=== PATIENT | female | born 1960 | race Caucasian/White ===

== ENCOUNTER 2018-12-17 09:50 | Emergency (ER) | payer BC, OTHER ==
[2018-12-17 10:10] VITALS: BP 127/82
--- NOTE | 2018-12-17 10:19 | UC ---
General HPI - HPI Summary HPI Summary: PT TRIPPED AND FELL WHILE AT WORK THIS AM STRIKING HER R JAW ON AN INDUSTRIAL PLASTIC SINK. SHE IS C/O PAIN AND SWELLING TO THE R SIDE OF HER JAW. SHE STATES " I DON'T WANT TO OPEN MY MOUTH ALL THE WAY BECAUSE IT HURTS". SHE DENIES DENTAL INJURY AND MALOCCLUSION. SHE TOOK [employer]. SHE DENIES NECK PAIN AND ANY OTHER INJURY. SWELLING IMPROVING WITH ICE. - History of Current Complaint Chief Complaint: UCTrauma Stated Complaint: JAW INJURY (WC) Time Seen by Provider: 12/17/18 10:10 Hx Obtained From: Patient Onset/Duration: Sudden Onset Timing: Constant Pain Intensity: 5 Associated Signs & Symptoms: Negative: Headache PMH/Surg Hx/FS Hx/Imm Hx Previously Healthy: Yes - Surgical History Surgical History: Yes Surgery Procedure, Year, and Place: ablasions, hernia repair - Family History Known Family History: Positive: Non-Contributory - Social History Occupation: Employed Full-time Alcohol Use: Weekly Substance Use Type: None Smoking Status (MU): Never Smoked Tobacco Review of Systems All Other Systems Reviewed And Are Negative: Yes ENT: Negative: Dental Pain Gastrointestinal: Negative: Vomiting, Nausea Musculoskeletal: Positive: Other: - NO NECK/BACK PAIN Neurological: Negative: Headache Physical Exam Triage Information Reviewed: Yes Appearance: Well-Appearing Vital Signs: Initial Vital Signs Temp 97.3 F 12/17/18 10:06 Pulse 72 12/17/18 10:06 Resp 18 12/17/18 10:06 BP 127/82 12/17/18 10:06 Pulse Ox 98 12/17/18 10:06 Vital Signs Reviewed: Yes Eyes: Positive: Conjunctiva Clear, Other: - perrl, eomi> ENT: Positive: Pharynx normal, TMs normal, Other - R lateral jaw with mild STS and tenderness. no pain with palpation of TMJ's or along the underside of entire mandible(avoiding sts) and no instability.. Negative: Nasal drainage Dental: Positive: Other: - no malocclusion but rom limited by 50% due to pain over R lateral jaw.. Negative: Dental Fracture @ Neck: Positive: Supple, Nontender, No Lymphadenopathy, Other: - c-spine is non tender. Respiratory: Positive: No respiratory distress Musculoskeletal: Positive: Other: - back is non tender and rom intact Neurological: Positive: Other: - A&Ox3. CN 2-12 grossly intact. Steady gait and recall intact. Skin Exam: Normal Skin: Negative: Rashes Diagnostics - Radiology No standard instances Radiology Interpretation Completed By: Radiologist - IMPRESSION: No definite fracture is identified. Mandibular condyles are limited in evaluation. If persistent clinical concern CT could be performed for further evaluation. Course/Dx - Differential Dx - Multi-Symptom Differential Diagnoses: Other - NO OVERT FX. NO MALOCCLUSION OR DENTAL FX'S; HOWEVER, ROM LIMITED THUS WILL F/U WITH ENT 10AM TOMORROW SCHEDULED BY THIS PROVIDER. ENT IS ABLE TO DO ADDITIONAL IMAGING IF NEEDED. - Diagnoses Provider Diagnosis: Contusion of jaw Discharge - Sign-Out/Discharge Documenting (check all that apply): Patient Departure All imaging exams completed and their final reports reviewed: Yes - Discharge Plan Condition: Stable Disposition: HOME Patient Education Materials: Jaw Fracture in Adults (ED), Soft Diet (ED), Contusion in Adults (ED) Referrals: Hilton Gallardo MD [Medical Doctor] - Additional Instructions: FOLLOW UP WITH DR GALLARDO AT 10AM TOMORROW (12/18/18) SCHEDULED BY THIS FACILITY. - Billing Disposition and Condition Condition: STABLE Disposition: Home
== END 2018-12-17 11:16 | disposition home or self-care (01) ==
LOC: UCCORT 09:50
DX: S00.83XA Contusion of other part of head, initial encounter (principal); W01.198A Fall on same level from slipping, tripping and stumbling with subsequent striking against other object, initial encounter; Y92.89 Other specified places as the place of occurrence of the external cause; Y99.0 Civilian activity done for income or pay
CPT/HCPCS: 70110; 99201; G0463